=== PATIENT | male | born 1985 | race Caucasian/White ===

== ENCOUNTER 2022-10-01 16:08 | Emergency (ER) | payer MEDICARE, MEDICAID | END 2022-10-01 16:32 | disposition left against medical advice (07) | LOC: ER 16:08 → EDBD 16:08 → ER 16:32 | DX: T40.601A Poisoning by unspecified narcotics, accidental (unintentional), initial encounter (principal); Y92.89 Other specified places as the place of occurrence of the external cause | CPT/HCPCS: 93005 ==